=== PATIENT | female | born 1965 | race Caucasian/White ===

== ENCOUNTER → 2016-12-02 | Outpatient (CLI) | payer MEDICARE, MEDICAID ==
--- NOTE | 2016-12-27 00:07 | ECWPNPC ---
PATIENT NAME: UGO STONER : 1965 GENDER: FEMALE VISIT DATE: 12/02/2016 DISCHARGE DATE: 12/02/16 1514 VISIT LOCKED DATE TIME: PHYSICIAN: JONNY TAVERAS RESOURCE: JONNY TAVERAS REASON FOR APPOINTMENT 1. NECK/BACK HISTORY OF PRESENT ILLNESS NEW PATIENT CONSULT: WHEN DID YOUR PAIN FIRST START? . BRIEFLY DESCRIBE HOW YOUR PAIN STARTED? . HOW DOES YOUR PAIN CHANGE WITH TIME? . DOES YOUR PAIN AWAKEN YOU FROM SLEEP? . HOW MANY HOURS OF SLEEP DO YOU NORMALLY GET? . ANY DIAGNOSTIC TESTING? . FACILITY WHERE TESTS WERE DONE? ____. PAIN TREATMENT TREATMENT YES CANCER HAVE YOU EVER HAD ANY TYPE OF CANCER?NO NO. PAIN SCREENING: PATIENT HAS A COMPLAINT OF ACUTE OR CHRONIC PAIN :YES FALL RISK SCREENING: SCREENING :NO FALLS IN THE PAST YEAR POWER INVENTORY: QUESTIONNAIRE ASSESSEDYES SCORE VALUE CALCULATED YES SCORE: 15/63 DENIES SUICIDAL OR HOMICIDAL IDEATION TODAY'S VISIT: NOTES: PT REFERRED BY HALLEY ARIAS CUSTOMER [employer]Y MANAGER-C FOR CHRONIC NECK AND BACK PAIN. HAD PREVIOUS BEEN UNDER THE CARE OF DR MOSCOSO, [facility].HAS HAD PAIN ISSUES SINCE CHILDHOOD BUT THINGS HAVE GOTTEN WORSE. ALSO REPORTS PAIN IN SHOULDERS AND HIP. STATES THAT THE WORST IS MID THORACIC AREA. MOST RECENTLY WAS SEEN BY DR MOSCOSO AT [facility] AND HAD THORACIC EPIDURAL WITHOUT RELIEF, ALSO HAD TRIGGER POINT INJECTIONS WHICH HELPED. ALSO HAD BLOCK TO RIGHT SHOULDER WHICH WAS HELPFUL. FEELS LIKE NECK IS NOT ABLE TO HOLD HEAD UP. HAS USED NECK TRACTION, TENS, BRACE. THESE HELP.RATES PAIN TODAY 7/10 - TODAY IS A BAD DAY. NOTES MORNINGS ARE THE BEST - PAIN USUALLY 4/10. . CURRENT MEDICATIONS TAKING CYMBALTA 60 MG CAPSULE DELAYED RELEASE PARTICLES 1 CAPSULE ORALLY TWICE A DAY TAKING LYRICA 300 MG CAPSULE 1 CAPSULE ORALLY THREE TIMES A DAY TAKING ZOLOFT 100 MG TABLET 1 TABLET ORALLY ONCE A DAY TAKING ZESTORETIC 20-12.5 MG TABLET 1 TABLET ORALLY ONCE A DAY TAKING TRAZODONE HCL 100 MG TABLET 1 TABLET AT BEDTIME ORALLY ONCE A DAY TAKING ALEVE 220 MG TABLET 1 TABLET NEEDED ORALLY EVERY 12 HRS NEEDED FOR PAIN DISCONTINUED CYMBALTA 30 MG CAPSULE DELAYED RELEASE PARTICLES 1 CAPSULE ORALLY TWICE A DAY DISCONTINUED ABILIFY 10 MG TABLET 1 TABLET ORALLY ONCE A DAY DISCONTINUED LYRICA 75 MG CAPSULE 1 CAPSULE ORALLY THREE TIMES A DAY NEEDED DISCONTINUED AMBIEN CR 12.5 MG TABLET EXTENDED RELEASE 1 TABLET AT BEDTIME NEEDED ORALLY NEEDED AT BEDTIME DISCONTINUED AMITRIPTYLINE HCL 25 MG TABLET 1 TABLET AT BEDTIME ORALLY ONCE A DAY DISCONTINUED SAVELLA 50 MG TABLET 1 TAB(S) ORALLY TWICE A DAY DISCONTINUED SOMA 350 MG TABLET 1 TABLET ORALLY THREE TIMES A DAY DISCONTINUED PROZAC 60MG 1 DAILY DISCONTINUED ZESTORETIC 20-12.5 MG TABLET 1 TABLET ORALLY ONCE A DAY MEDICATION LIST REVIEWED AND RECONCILED WITH THE PATIENT PAST MEDICAL HISTORY DDD/DD HYPERTENSION SPINAL STENOSIS SHOULDER PAIN FIBROMYALGIA ANXIETY ALLERGIES N.K.D.A. SURGICAL HISTORY C SECTION TUBAL LIGATION WRIST SURGERY- LEFT COLONOSCOPY CANCER- DEMATEFIBROSARCOMA PROTUBERANS FAMILY HISTORY 1DAUGHTER(S) - HEALTHY. NONCONTRIBUTORY- ADOPTED. SOCIAL HISTORY GENERAL: TOBACCO USE ARE YOU A:CURRENT SMOKER PATIENT COUNSELED ON THE DANGERS OF TOBACCO USE AND URGED TO QUIT:12/02/2016 ARE YOU INTERESTED IN QUITTING?READY TO QUIT COUNSELED THE PATIENT ON TOBACCO USE, CESSATION [id number]/13/2017 ALCOHOL SCREENING POINTS0 INTERPRETATIONNEGATIVE RECREATIONAL DRUG USE DRUG USE?YES HOW OFTEN AND HOW MUCH? DAILY SMOKES POT CAFFEINE CAFFEINE USE?NO RARELY HAS CAFFIENE LEARNING BARRIERS / SPECIAL NEEDS BARRIERS TO LEARNING?NO VISION IMPAIRED?YES :CORRECTIVE LENSES READINESS TO LEARN?YES LEARNING PREFERENCES?NO PAIN CLINIC PFS, CLERGY, PUBLIC HEALTH REFERRALS PFS REFERRAL NEEDED?NO CLERGY REFERRAL NEEDED?NO PUBLIC HEALTH REFERRAL NEEDED?NO WAS THE PROVIDER NOTIFIED OF ANY PERTINENT INFO?NO HAS THE PATIENT BEEN EDUCATED REGARDING HIS/HER PLAN OF CARE?YES HAS THE PATIENT BEEN EDUCATED REGARDING PAIN, THE RISK FOR PAIN, THE IMPORTANCE OF EFFECTIVE PAIN MANAGEMENT, AND THE PAIN ASSESSMENT PROCESS?YES PATIENT: ____. ADVANCE DIRECTIVES HEALTH CARE PROXY?NO WOULD YOU LIKE MORE INFORMATION?NO HOSPITALIZATION/MAJOR DIAGNOSTIC PROCEDURE DENIES HOSPITALIZATION EXCEPT FOR SURGERY REVIEW OF SYSTEMS REVIEWED BY: PROVIDER: JONNY ETIENNE . CONSTITUTIONAL: ANY CHANGE IN YOUR MEDICAL CONDITION? NO . CHILLS NO . FEVER NO . INFECTION: DO YOU HAVE NEW INFECTIONS? NO . DO YOU HAVE HISTORY OF MRSA? NO . MUSCULOSKELETAL: ANY NEW PATTERNS OF PAIN OR NUMBNESS? NO . SYTEMIC LUPUS NO . GASTROENTEROLOGY: GENERAL CHRONIC CONSTIPATION - DIET MANAGED . ANY NEW CHANGE IN BOWEL CONTROL? NO . BARRETTS ESOPHAGUS NO . CIRRHOSIS NO . HEPATITIS NO . LIVER FAILURE NO . ACID REFLUX NO . UNEXPLAINED WEIGHT LOSS NO . GENITOURINARY: ANY NEW CHANGE IN BLADDER CONTROL? NO . IS THERE A CHANCE YOU COULD BE ? NO . HEMATOLOGY/LYMPH: DO YOU TAKE ANY BLOOD THINNERS? (FOR EXAMPLE- COUMADIN, PLAVIX, AGGRENOX, PLATEL, PRADAXA, OR XARELTO) NO . WHEN WAS YOUR LAST DOSE? DATE: TIME: . LOW PLATELET COUNT NO . SICKLE CELL DISEASE NO . VON WILLIEBRANDS NO . FACTOR V LEIDEN NO . THALLASEMIA NO . ANEMIA NO . EASY BRUISING NO . NEUROLOGY: MYAASTHENIA GRAVIS NO . HEADACHE HX OF MIGRAINES WHEN WORKING NIGHTS . CARDIOLOGY: DO YOU HAVE A PACEMAKER OR DEFIBRILLATOR? NO . ANGINA NO . HEART ATTACK NO . HEART SURGERY NO . CONGESTIVE HEART FAILURE/FLUID OVERLOAD NO . CHEST PAIN NO . HIGH BLOOD PRESSURE ON MEDICATION(S) . IRREGULAR HEART BEAT NO . RESPIRATORY: HAVE YOU BEEN SICK IN THE PAST WEEK? NO . FEVER NO . FLU LIKE SYMPTOMS? NO . CPAP NO . BYPAP NO . ASTHMA NO . EMPHYSEMA NO . CHRONIC LUNG DISEASES NO . SHORTNESS OF BREATH ON EXERTION NO . DO YOU USE ANY TYPE OF TOBACCO (SMOKE, SMOKELESS, CHEW)? YES, SMOKES . COUGH NO . SNORING NO . INTEGUMENTARY: DO YOU HAVE ANY RASHES OR OPEN SORES? NO . ALLERGIC/IMMUNO: ARE YOU ALLERGIC TO SHELLFISH OR IV DYE? NO . ANY NEW ALLERGIES? NO . PSYCHIATRIC: DO YOU HAVE THOUGHTS OF HURTING YOURSELF OR SOMEONE ELSE? NO . ARE YOU ABUSED, NEGLECTED, OR IN AN UNSAFE ENVIRONMENT? NO . ENDOCRINOLOGY: ARE YOU DIABETIC? NO . THYROID DISORDER NO . OTHER: DO YOU NEED ANY PRESCRIPTIONS? NO . IF YES, PLEASE LIST: ____ . ANY NEW PROBLEMS WITH YOUR MEDICATIONS? NO . WHEN DID YOU LAST EAT? ____ . WHEN DID YOU LAST DRINK? ____ . WHAT DID YOU LAST DRINK? ____ . NAME OF PERSON DRIVING YOU HOME? ____ . DO YOU HAVE ANY OTHER QUESTIONS OR CONCERNS NO . VITAL SIGNS WT 171.6 LBS, HT 62 IN, BMI 31.38 INDEX, BP 136/75 MM HG, HR 77 /MIN, RR 16 /MIN, TEMP 98.7 F, OXYGEN SAT % 99%, REVIEWED BY: COBY 1354. EXAMINATION GENERAL EXAMINATION: GENERAL APPEARANCE:PLEASANT TO INTERACT WITH. WELL GROOMED. PSYCHALERT , ORIENTED X 3 , APPROPRIATE MOOD AND AFFECT , GOOD EYE CONTACT. HEENT:NORMOCEPHALIC, NO LYMPHADENOPATHY, NO THYROMEGLY. LUNGS:CLEAR TO AUSCULTATION BILATERALLY, NO WHEEZES RALES OR RHONCHI. HEART:NORMAL S1S2, NO MURMURS, CLICK OR RUBS. MUSCULOSKELETAL:MUSCLE STRENGTH TESTING 5/5 BILATERAL UPPER AND LOWER EXTREMITIES. POINT TENDERNESS OVER C7 PROMINENCE AND OVER UPPER THORACIC SPINOUS PROCESSES. TENDERNESS OVER RIGHT SCAPULA WITH TRIGGER POINTS AND TIGHT FIBROUS BANDS OVER THIS REGION. TENDERNESS OVER LUMBAR FACETS AND SACRUM. CAN FLEX TO 45 DEGREES, EXTEND TO 15 DEGREES,. NO PAIN WITH SLR. LEG LENGTH EQUAL. NO PAIN WITH PELVIC COMPRESSION OR PATRICKS TESTING. POSTURE UPRIGHT. GAIT NONANTALGIC. NEUROLOGIC EXAM:DTR'S 2+ BILATERAL UPPER AND LOWER EXTREMITIES. NO SENSORY DEFICIET. HYSENSATIVITY OVER CERVICAL THORACIC JUNCTION . 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 WAS OFFERED SMOKING CESSATION FOR GUIDANCE IN QUITTING THROUGH THE [facility] QUITS PROGRAM AND [facility]. CLINICAL NOTES: ISTOP REGISTRY REVIEWED AND DEMNOSTRATES COMPLLIANCE. OPTIONS FOR CONTINUED PAIN MANAGEMENT DISCUSSED. WILL OBTAIN NEW IMAGING STUDIES OF CERVICAL AND THORACIC SPINE. PROCEDURE CODES FA211 ESTABILISHED PATIENT [facility] FACILITY CHARGE G7300 BP SCR PRFRM RCMDD DEFIND SCR INTVL G6418 PAIN ASSESS POS TOOL F/U PLAN DOC 3016F PT SCRND UNHLTHY [place] USE 1124F ACP DISCUSS-NO DSCNMKR DOCD G8427 DOC MEDS VERIFIED W/PT OR RE G8420 BMI<30 AND >=22 CALC & DOCU 3288F FALL RISK ASSESSMENT DOCD 4004F PT TOBACCO SCREEN RCVD TLK DISPOSITION & COMMUNICATION FOLLOW UP 1 MONTH (REASON: MIYA DR BLANKA JoseP PAIN - NEED TREATMENT RECORDS - INJECTIONS. PRIOR AUTH OF MRI CERVICAL/THORACIC SP) ELECTRONICALLY SIGNED BY LUIS STRATTON ON 12/26/2016 AT 10:57 AM EDT DISCLAIMER : THIS IS A VISIT SUMMARY EXTRACTED FROM THE [employer] CHART. IT IS NOT A COPY OF THE [employer] PROGRESS NOTE. MTDD
== END ==
LOC: M PAIN 13:20
PROVIDERS: ATTEND Nurse Practitioner Family
DX: G89.29 Other chronic pain (principal); M51.24 Other intervertebral disc displacement, thoracic region; M79.7 Fibromyalgia; I10 Essential (primary) hypertension; F41.9 Anxiety disorder, unspecified; F17.210 Nicotine dependence, cigarettes, uncomplicated; F12.90 Cannabis use, unspecified, uncomplicated; Z79.899 Other long term (current) drug therapy

== ENCOUNTER → 2016-12-07 | Outpatient (CLI) | payer MEDICARE, MEDICAID ==
--- NOTE | 2016-12-08 08:13 | REP ---
MRI CERVICAL SPINE WITHOUT CONTRAST: HISTORY: Disc displacement. COMPARISON: 06/04/2008. A disc bulge is present at the C3-4 level. There is minimal effacement of the thecal sac without spinal cord compression. The C3 neural foramina are patent. A disc bulge is present at the C4-5 level. There is minimal effacement of the thecal sac without spinal cord compression. The C4 neural foramina are patent. A disc bulge with associated osteophyte formation is present at the C5-6 level. There is moderate effacement of the thecal sac without spinal cord compression. Bilateral uncinate process hypertrophy is present. This produces mild and minimal narrowing of the right and left C5 neural foramina respectively. A disc bulge is present at the C6-7 level. There is mild effacement of the thecal sac without spinal cord compression. Uncinate process hypertrophy is present on the left. This produces mild narrowing of the left C6 neural foramen. The right C6 neural foramen is patent. There is no other disc bulge or herniation. The remaining neural foramina are patent. The spinal cord is normal in signal intensity. The C5-6 and C6-7 intervertebral discs are decreased in height consistent with disc degeneration. Normal signal intensity is present in the cervical vertebral bodies. IMPRESSION: There is cervical spondylosis at the C3-4 through C6-7 levels without spinal cord compression. The foraminal narrowing at the C5-6 and C6-7 levels is a new finding. Signed by Fabrizio Oneil MD 12/08/2016 08:16 A
--- NOTE | 2016-12-08 08:40 | REP ---
MR THORACIC SPINE WITHOUT CONTRAST: HISTORY: Disc displacement. A small central disc protrusion is present at the T1-2 level. There is minimal effacement of the thecal sac without spinal cord compression. The T1 neural foramen are patent. A small central disc protrusion is present at the T2-3 level. There is minimal effacement of the thecal sac without spinal cord compression. The T2 neural foramina are patent. A small central disc protrusion is present at the T3-4 level. There is minimal effacement of the thecal sac without spinal cord compression. The T3 neural foramina are patent. A small central disc protrusion is present at the T4-5 level. There is minimal effacement of the thecal sac without spinal cord compression. The T4 neural foramina are patent. A small left paracentral disc protrusion is present at the T6-7 level. There is minimal effacement of the thecal sac without spinal cord compression. The T6 neural foramina are patent. There is no other disc bulge or herniation. The remaining neural foramina are patent. The spinal cord is normal in signal intensity. There are old compression fractures of the T7 and 8 vertebral bodies with minimal height loss. Increased signal intensity on T2 weighted images is present in the endplates of the T6-9 vertebral bodies. This represents degenerative change. Anterior osteophytes are present in the mid and lower thoracic spine. IMPRESSION: 1. Small disc protrusions at the T1-2 through T4-5 and T6-7 levels without spinal cord compression. 2. Old T7 and 8 compression fractures with minimal height loss. Signed by Fabrizio Oenil MD 12/08/2016 08:49 A
== END ==
LOC: M RAD 17:05
PROVIDERS: ATTEND Nurse Practitioner Family
DX: M51.24 Other intervertebral disc displacement, thoracic region (principal); M43.02 Spondylolysis, cervical region

== ENCOUNTER → 2016-12-21 | Outpatient (CLI) | payer MEDICARE, MEDICAID ==
--- NOTE | 2016-12-21 14:02 | REP ---
AP AND LATERAL LEFT ANKLE, TWO VIEWS: HISTORY: Edema. There is no acute fracture or dislocation. The joint space is normal in appearance. An osteophyte is present on the inferior calcaneus. IMPRESSION: Degenerative change as described above. Signed by Fabrizio Oneil MD 12/21/2016 02:04 P
--- NOTE | 2016-12-21 16:34 | REPMRS ---
Patient History The patient states she has not had a clinical breast exam in over a year. Patient has history of other cancer. No known family history of cancer. Digital Mammo Screening Bilat: December 21, 2016 - Exam #: [id number] Bilateral CC and MLO view(s) were taken. Technologist: Lesli Kahn, Technologist Prior study comparison: 2014, digital bilateral screening mammo, performed at [facility]. FINDINGS: There are scattered fibroglandular densities. There has been no change in the appearance of the mammogram from the prior studies. There is a mild amount of residual fibroglandular tissue which is fairly symmetric. There is no interval development of dominant mass, architectural distortion, or clustered microcalcification suggestive of malignancy. No significant changes when compared with prior studies. ASSESSMENT: BI-RADS/ACR category 1 mammogram. Negative. Recommendation Routine screening mammogram in 1 year (for women over age 40). This mammogram was interpreted with the aid of an FDA-approved computer-aided dectection system. A. Negative x-ray reports should not delay biopsy if a dominant or clinically suspicious mass is present. B. Four to eight percent of cancers are not identified by mammography. C. Adenosis and dense breast may obscure an underlying neoplasm. Electronically Signed By: Abel Slaughter MD 12/21/16 [id number]
== END ==
LOC: M RAD 12:55
PROVIDERS: ATTEND Internal Medicine Hematology & Oncology
DX: Z12.31 Encounter for screening mammogram for malignant neoplasm of breast (principal)
CPT/HCPCS: 73600; G0202

== ENCOUNTER → 2016-12-30 | Outpatient (CLI) | payer MEDICARE, MEDICAID ==
--- NOTE | 2017-01-15 23:31 | ECWPNPC ---
PATIENT NAME: UGO STONER : 1965 GENDER: FEMALE VISIT DATE: 12/30/2016 DISCHARGE DATE: 12/30/16 1153 VISIT LOCKED DATE TIME: PHYSICIAN: JONNY TAVERAS RESOURCE: JONNY TAVERAS REASON FOR APPOINTMENT 1. NECK/BACK/SHOULDER HISTORY OF PRESENT ILLNESS HISTORY OF PRESENT ILLNESS: PAIN THE PATIENT DESCRIBES THE PAIN... FALL RISK SCREENING: SCREENING :NO FALLS IN THE PAST YEAR TODAY'S VISIT: NOTES: RETURNS TODAY FOR POST MRI FOLLOWUP. RATES PAIN TODAY 11/29. HAD FALL WITH INCREASED PAIN TO LOW NACK AN RIGHT HIP AFTER FALL. DID SEE PCP FOR SWOLEN ANKLE - XRAY WAS DONE. WORST AREA OF PAIN IS NECK BOTH SIDES. IS HAVING N/T IN HANDS AND LEGS INTERMITTANTLY. . CURRENT MEDICATIONS TAKING CYMBALTA 60 MG CAPSULE DELAYED RELEASE PARTICLES 1 CAPSULE ORALLY TWICE A DAY TAKING LYRICA 300 MG CAPSULE 1 CAPSULE ORALLY THREE TIMES A DAY TAKING ZOLOFT 100 MG TABLET 1 TABLET ORALLY ONCE A DAY TAKING ZESTORETIC 20-12.5 MG TABLET 1 TABLET ORALLY ONCE A DAY TAKING TRAZODONE HCL 100 MG TABLET 1 TABLET AT BEDTIME ORALLY ONCE A DAY TAKING ALEVE 220 MG TABLET 1 TABLET NEEDED ORALLY EVERY 12 HRS NEEDED FOR PAIN MEDICATION LIST REVIEWED AND RECONCILED WITH THE PATIENT PAST MEDICAL HISTORY DDD/DD HYPERTENSION SPINAL STENOSIS SHOULDER PAIN FIBROMYALGIA ANXIETY ALLERGIES N.K.D.A. SOCIAL HISTORY GENERAL: TOBACCO USE ARE YOU A:CURRENT SMOKER PATIENT COUNSELED ON THE DANGERS OF TOBACCO USE AND URGED TO QUIT:12/02/2016 ARE YOU INTERESTED IN QUITTING?READY TO QUIT COUNSELED THE PATIENT ON TOBACCO USE, CESSATION [id number]/13/2017 ALCOHOL SCREENING DID YOU HAVE A DRINK CONTAINING ALCOHOL IN THE PAST YEAR?NO POINTS0 INTERPRETATIONNEGATIVE RECREATIONAL DRUG USE DRUG USE?YES HOW OFTEN AND HOW MUCH? DAILY SMOKES POT CAFFEINE CAFFEINE USE?NO RARELY HAS CAFFIENE LEARNING BARRIERS / SPECIAL NEEDS CHANGE FROM LAST VISIT?NO BARRIERS TO LEARNING?NO HEARING IMPAIRED?NO VISION IMPAIRED?YES :CORRECTIVE LENSES COGNITIVELY IMPAIRED?NO READINESS TO LEARN?YES LEARNING PREFERENCES?NO LEARNING CAPABILITIES PRESENT?YES EMOTIONAL BARRIERS?NO SPECIAL DEVICES?NO ACCOUNTS PAYABLE OR RECEIVABLE CLERK NEEDED?NO PAIN CLINIC PFS, CLERGY, PUBLIC HEALTH REFERRALS PFS REFERRAL NEEDED?NO CLERGY REFERRAL NEEDED?NO PUBLIC HEALTH REFERRAL NEEDED?NO WAS THE PROVIDER NOTIFIED OF ANY PERTINENT INFO?NO HAS THE PATIENT BEEN EDUCATED REGARDING HIS/HER PLAN OF CARE?YES HAS THE PATIENT BEEN EDUCATED REGARDING PAIN, THE RISK FOR PAIN, THE IMPORTANCE OF EFFECTIVE PAIN MANAGEMENT, AND THE PAIN ASSESSMENT PROCESS?YES PATIENT: ____. ADVANCE DIRECTIVES HEALTH CARE PROXY?NO WOULD YOU LIKE MORE INFORMATION?NO REVIEW OF SYSTEMS REVIEWED BY: PROVIDER: JONNY ETIENNE . CONSTITUTIONAL: ANY CHANGE IN YOUR MEDICAL CONDITION? NO . CHILLS NO . FEVER NO . INFECTION: DO YOU HAVE NEW INFECTIONS? NO . DO YOU HAVE HISTORY OF MRSA? NO . MUSCULOSKELETAL: ANY NEW PATTERNS OF PAIN OR NUMBNESS? YES, FELL ABOUT 3 WEEKS AGO AND SINCE FALLING NOW HAS RIGHT HIP PAIN AND INCREASED RIGHT LOWER BACK PAIN. ALSO, LEFT ANKLE SWELLING PRIOR TO FALL AND SAW PRIMARY MD AND XRAYS DONE OF LEFT ANKLE. . GASTROENTEROLOGY: ANY NEW CHANGE IN BOWEL CONTROL? NO . GENITOURINARY: ANY NEW CHANGE IN BLADDER CONTROL? NO . IS THERE A CHANCE YOU COULD BE ? NO . HEMATOLOGY/LYMPH: DO YOU TAKE ANY BLOOD THINNERS? (FOR EXAMPLE- COUMADIN, PLAVIX, AGGRENOX, PLATEL, PRADAXA, OR XARELTO) NO . WHEN WAS YOUR LAST DOSE? DATE: TIME: . NEUROLOGY: HAVE YOU FALLEN IN THE PAST 6 MONTHS? YES . ANY NEW EXTREMITY NUMBNESS OR WEAKNESS? NO . CARDIOLOGY: DO YOU HAVE A PACEMAKER OR DEFIBRILLATOR? NO . RESPIRATORY: HAVE YOU BEEN SICK IN THE PAST WEEK? NO . FEVER NO . FLU LIKE SYMPTOMS? NO . COUGH NO . INTEGUMENTARY: DO YOU HAVE ANY RASHES OR OPEN SORES? NO . ALLERGIC/IMMUNO: ARE YOU ALLERGIC TO SHELLFISH OR IV DYE? NO . ANY NEW ALLERGIES? NO . PSYCHIATRIC: DO YOU HAVE THOUGHTS OF HURTING YOURSELF OR SOMEONE ELSE? NO . ARE YOU ABUSED, NEGLECTED, OR IN AN UNSAFE ENVIRONMENT? NO . ENDOCRINOLOGY: ARE YOU DIABETIC? NO . OTHER: DO YOU NEED ANY PRESCRIPTIONS? NO . IF YES, PLEASE LIST: ____ . ANY NEW PROBLEMS WITH YOUR MEDICATIONS? NO . WHEN DID YOU LAST EAT? ____ . WHEN DID YOU LAST DRINK? ____ . WHAT DID YOU LAST DRINK? ____ . NAME OF PERSON DRIVING YOU HOME? ____ . DO YOU HAVE ANY OTHER QUESTIONS OR CONCERNS YES, RIGHT HIP PAIN . VITAL SIGNS WT 169.8 LBS, HT 62 IN, BMI 31.05 INDEX, BP 148/81 MM HG, HR 81 /MIN, RR 16 /MIN, TEMP 98.7 F, OXYGEN SAT % 96%, NA INITIALS QW 1052, REVIEWED BY: BEE. EXAMINATION GENERAL EXAMINATION: GENERAL APPEARANCE:PLEASANT TO INTERACT WITH. WELL GROOMED. PSYCHALERT , ORIENTED X 3 , APPROPRIATE MOOD AND AFFECT . LUNGS:CLEAR TO AUSCULTATION BILATERALLY, NO WHEEZES RALES OR RHONCHI. HEART:NORMAL S1S2, NO MURMURS, CLICK OR RUBS. MUSCULOSKELETAL:MUSCLE STRENGTH TESTING 5/5 BILATERAL UPPER AND LOWER EXTREMITIES. POINT TENDERNESS OVER C7 PROMINENCE AND OVER UPPER THORACIC SPINOUS PROCESSES. TENDERNESS OVER RIGHT SCAPULA WITH TRIGGER POINTS AND TIGHT FIBROUS BANDS OVER THIS REGION.. POSTURE UPRIGHT. GAIT NONANTALGIC. NEUROLOGIC EXAM:HYPERSENSATIVITY OVER CERVICAL THORACIC JUNCTION . DIAGNOSTIC TESTS REVIEWEDMRI OF CERVICAL SPINE AND THORACIC SPINE CMPLETED ON 12/07/16 REVIEWED AND DISCUSSED WITH PATIENT. 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 CALL DR ELROY DIAZ ABOUT MEDICAL MARIJUANA PROGRAMDO EXERCISES AND STRETCHES OF UPPER SHOULDERS AND TRAPEZIUS MUSCLES. WALK EVERY DAY. PROCEDURE CODES FA211 ESTABILISHED PATIENT [facility] FACILITY CHARGE G8730 PAIN ASSESS POS TOOL F/U PLAN DOC G8427 DOC MEDS VERIFIED W/PT OR RE DISPOSITION & COMMUNICATION FOLLOW UP 3 MONTHS (REASON: NECK/THORACIC PAIN) ELECTRONICALLY SIGNED BY LUIS STRATTON ON 01/15/2017 AT 04:49 PM EDT DISCLAIMER : THIS IS A VISIT SUMMARY EXTRACTED FROM THE [employer] CHART. IT IS NOT A COPY OF THE [employer] PROGRESS NOTE. GIANNA
== END ==
LOC: M PAIN 10:40
PROVIDERS: ATTEND Nurse Practitioner Family
DX: G89.29 Other chronic pain (principal); M51.24 Other intervertebral disc displacement, thoracic region; M79.7 Fibromyalgia; I10 Essential (primary) hypertension; F41.9 Anxiety disorder, unspecified; M48.00 Spinal stenosis, site unspecified; Z79.1 Long term (current) use of non-steroidal anti-inflammatories (NSAID); Z79.899 Other long term (current) drug therapy; F17.210 Nicotine dependence, cigarettes, uncomplicated

== ENCOUNTER → 2017-09-05 | Outpatient (CLI) | payer MEDICARE, MEDICAID | LOC: M LRY 18:10 | DX: S69.91XA Unspecified injury of right wrist, hand and finger(s), initial encounter (principal); S89.91XA Unspecified injury of right lower leg, initial encounter; W00.0XXA Fall on same level due to ice and snow, initial encounter; Y92.9 Unspecified place or not applicable; Y93.9 Activity, unspecified | CPT/HCPCS: 73130; G0463 ==

== ENCOUNTER → 2018-05-31 | Outpatient (CLI) | payer MEDICARE, MEDICAID ==
--- NOTE | 2018-05-31 10:09 | REP ---
AP PELVIS, LEFT HIP, THREE VIEWS: HISTORY: Left hip pain. COMPARISON: 12/12/2009. There is no acute fracture or dislocation. The left hip joint space is normal in appearance. There is minimal narrowing of the right hip joint space with associated sclerosis and osteophyte formation. A bone fragment is present along the lateral aspect of the inferior ischium representing an old avulsion fracture fragment. IMPRESSION: Degenerative change as described above. Electronically Signed by Fabrizio Oneil MD 05/31/2018 10:12 A
[2018-05-31 11:27] LABS: HEMATOCRIT 38.4 % (36.0-47.0); MEAN CORPUSCULAR HEMOGLOBIN 31.1 pg (27.0-33.0); MEAN CORPUSCULAR HGB CONC 33.9 g/dl (32.0-36.5); MEAN CORPUSCULAR VOLUME 91.9 fl (80.0-96.0); PLATELET COUNT, AUTOMATED 349 10^3/uL (150-450); RED BLOOD COUNT 4.18 10^6/uL (4.00-5.40); WHITE BLOOD COUNT 6.4 10^3/uL (4.0-10.0)
[2018-05-31 12:16] LABS: ALBUMIN 3.4 GM/DL (3.2-5.2); ALT/SGPT 11 U/L (12-78); BILIRUBIN,TOTAL 0.4 MG/DL (0.2-1.0); BLOOD UREA NITROGEN 3 MG/DL (7-18); CALCIUM LEVEL 8.3 MG/DL (8.5-10.1); CARBON DIOXIDE LEVEL 32 MEQ/L (21-32); CHLORIDE LEVEL 100 MEQ/L (98-107); CHOLESTEROL LEVEL 188 MG/DL (<200); CHOLESTEROL RISK RATIO 2.441 (<5); GLOMERULAR FILTRATION RATE > 60.0 (>51); GLUCOSE, FASTING 88 MG/DL (70-100); HDL CHOLESTEROL 77 MG/DL (>40); LDL CHOLESTEROL 95 MG/DL (<100); NON-HDL-C 111 MG/DL; POTASSIUM SERUM 3.3 MEQ/L (3.5-5.1); SODIUM LEVEL 139 MEQ/L (136-145); THYROID STIMULATING HORMONE 0.614 uIU/ML (0.358-3.740); TOTAL PROTEIN 6.4 GM/DL (6.4-8.2); TRIGLYCERIDES LEVEL 81 MG/DL (<150)
== END ==
LOC: M LRY 08:53
PROVIDERS: ATTEND Internal Medicine Hematology & Oncology
DX: Z13.220 Encounter for screening for lipoid disorders (principal); F32.9 Major depressive disorder, single episode, unspecified; M25.552 Pain in left hip; M25.752 Osteophyte, left hip; M24.152 Other articular cartilage disorders, left hip

== ENCOUNTER → 2018-07-03 | Outpatient (CLI) | payer MEDICARE, MEDICAID ==
[2018-07-03 13:17] LABS: BLOOD UREA NITROGEN 7 MG/DL (7-18); CALCIUM LEVEL 9.1 MG/DL (8.5-10.1); CARBON DIOXIDE LEVEL 30 MEQ/L (21-32); CHLORIDE LEVEL 103 MEQ/L (98-107); GLOMERULAR FILTRATION RATE > 60.0 (>51); GLUCOSE, FASTING 85 MG/DL (70-100); SODIUM LEVEL 138 MEQ/L (136-145)
[2018-07-03 13:27] LABS: TOTAL 25(OH) VITAMIN D 26.4 NG/ML (30.0-100.0)
== END ==
LOC: M LAB 12:06
PROVIDERS: ATTEND Internal Medicine Hematology & Oncology
DX: E87.6 Hypokalemia (principal); E83.51 Hypocalcemia

== ENCOUNTER → 2018-07-05 | Outpatient (CLI) | payer MEDICARE, MEDICAID ==
--- NOTE | 2018-07-05 09:07 | REP ---
MRI LUMBAR SPINE WITHOUT CONTRAST: HISTORY: Back pain. Decreased signal intensity on T2-weighted images is present in the lumbar intervertebral discs. The L2-3 through L5-S1 intervertebral discs are decreased in height. These findings are consistent with disc degeneration. A diffuse disc bulge is present at the L1-2 level. There is minimal compression of the thecal sac. There is hypertrophy of the ligamenta flava and posterior articulating facets. The L1 nerves exit the neural foramina without compression. A diffuse disc bulge is present at the L2-3 level. There is minimal compression of the thecal sac. There is hypertrophy of the ligamenta flava and posterior articulating facets. The L2 nerves exit the neural foramina without compression. A diffuse disc bulge is present at the L3-4 level. There is hypertrophy of the ligamenta flava and posterior articulating facets. These findings produce mild central canal stenosis. There is compression of the right L3 nerve in the neural foramen. The left L3 nerve exits the neural foramen without compression. A diffuse disc bulge and small right paracentral disc extrusion are present at the L4-5 level. There is superior migration of disc material. There is hypertrophy of the ligamenta flava and posterior articulating facets. These findings produce moderate central canal stenosis. The L4 nerves exit the neural foramina without compression. A diffuse disc bulge and small disc protrusion central and eccentric to the left are present at the L5-S1 level. There is hypertrophy of the ligamenta flava and posterior articulating facets. These findings produce mild central canal stenosis. There is compression of the L5 nerves in the neural foramina. The conus medullaris is normal in appearance terminating at the level of the L1-2 intervertebral disc. Increased signal intensity on T2-weighted images is present in the endplates of the L4-S1 vertebral bodies. This represents degenerative change. IMPRESSION: 1. Diffuse disc bulges at the L1-2 and L2-3 levels with minimal thecal sac compression. 2. Mild central canal stenosis at the L3-4 level secondary to disc bulge, ligamentous and facet hypertrophy. There is compression of the right L3 nerve in the neural foramen. 3. Moderate central canal stenosis at the L4-5 level secondary to disc bulge, disc extrusion, ligamentous and facet hypertrophy. 4. Mild central canal stenosis at the L5-S1 level secondary to disc bulge, disc protrusion, ligamentous and facet hypertrophy. There is compression of the L5 nerves in the neural foramina. Electronically Signed by Fabrizio Oneil MD 07/05/2018 09:11 A
== END ==
LOC: M RAD 07:21
PROVIDERS: ATTEND Orthopaedic Surgery Sports Medicine
DX: M51.26 Other intervertebral disc displacement, lumbar region (principal); M48.061 Spinal stenosis, lumbar region without neurogenic claudication

== ENCOUNTER 2018-11-05 08:17 | Emergency (ER) | payer MEDICARE, MEDICAID ==
[~2018-11-05] VITALS: Ht 157.5 cm; Wt 77.3 kg
[2018-11-05] MEDS ORDERED: METAL LOCK LOOP XX ONE (09:06)
[2018-11-05] MEDS ORDERED: BACT800T5 PO (09:56)
[2018-11-05] MEDS ORDERED: AUGM875T28 PO (09:56)
[2018-11-05] MEDS ORDERED: DIFL150T PO (09:56)
[2018-11-05] MEDS ORDERED: BACTRIM 160MG/800MG DS TAB PO ONE (10:00)
[2018-11-05] MEDS ORDERED: AUGMENTIN 875 MG TAB PO ONE (10:00)
[2018-11-05 10:07] VITALS: BP 183/102
== END 2018-11-05 10:09 | disposition home or self-care (01) ==
LOC: M ED 08:17
DX: L08.9 Local infection of the skin and subcutaneous tissue, unspecified (principal); S51.812A Laceration without foreign body of left forearm, initial encounter; W54.0XXA Bitten by dog, initial encounter; Y92.9 Unspecified place or not applicable; Y93.9 Activity, unspecified; Y99.9 Unspecified external cause status; F17.210 Nicotine dependence, cigarettes, uncomplicated

== ENCOUNTER → 2018-11-30 | Outpatient (CLI) | payer MEDICARE, MEDICAID ==
[~2018-11-30] MED LIST: AUGM875T28 PO; BACT800T5 PO; DIFL150T PO
--- NOTE | 2018-12-08 01:21 | ECWPNPC ---
PATIENT NAME: UGO STONER : 1965 GENDER: FEMALE VISIT DATE: 11/30/2018 DISCHARGE DATE: 11/30/18 1700 VISIT LOCKED DATE TIME: PHYSICIAN: CECILIA GARCIA MD RESOURCE: CECILIA GARCIA MD REASON FOR APPOINTMENT 1. BACK HISTORY OF PRESENT ILLNESS PAIN SCREENING: PATIENT HAS A COMPLAINT OF ACUTE OR CHRONIC PAIN :YES 52 YEAR OLD FEMALE PATIENT WITH A HISTORY OF CHRONIC LOW BACK PAIN. THE PATIENT DESCRIBES THE PAIN ACHING, BURNING, TENDER, SHARP, STABBING, SHOOTING, AND CONTINUOUS WITH A PAIN SCORE OF 5-8/10 DEPENDING ON PHYSICAL ACTIVITY. THE PATIENT SAYS THAT HER PAIN IS ALSO IN HER CERVICAL AND THORACIC AREA, BUT HER WORST PAIN IS IN HER LOW BACK RADIATING DOWN HER LEFT LEG. THE PATIENT SAYS THAT SHE HAS HAD THIS PAIN FOR MANY YEARS AND IT HAS WORSENED RECENTLY. THE PATIENT SAYS SHE HAS DIFFICULTY DOING DAILY ACTIVITIES SUCH COOKING, CLEANING, AND GROCERY SHOPPING DUE TO THIS PAIN. PATIENT DENIES UNEXPLAINABLE WEIGHT LOSS, FEVER, CHILLS, NEW CHANGES ON HER URINARY OR BOWEL CONTROL. FALL RISK SCREENING: SCREENING :NO FALLS REPORTED IN THE LAST YEAR CURRENT MEDICATIONS TAKING CYMBALTA 60 MG CAPSULE DELAYED RELEASE PARTICLES 1 CAPSULE ORALLY TWICE A DAY TAKING LYRICA 300 MG CAPSULE 1 CAPSULE ORALLY THREE TIMES A DAY TAKING ZOLOFT 100 MG TABLET 200MG TABLET ORALLY ONCE A DAY TAKING ZESTORETIC 20-12.5 MG TABLET 1 TABLET ORALLY ONCE A DAY TAKING TRAZODONE HCL 100 MG TABLET 1 TABLET AT BEDTIME ORALLY ONCE A DAY TAKING VITAMIN D 2000 UNIT TABLET 300UNIT TABLET ORALLY ONCE A DAY TAKING NAPROXEN 250 MG TABLET 1 TABLET WITH FOOD OR MILK ORALLY TWICE A DAY TAKING POTASSIUM 99 MG TABLET 1 TABLET ORALLY ONCE A DAY DISCONTINUED ALEVE 220 MG TABLET 1 TABLET NEEDED ORALLY EVERY 12 HRS NEEDED FOR PAIN MEDICATION LIST REVIEWED AND RECONCILED WITH THE PATIENT PAST MEDICAL HISTORY DDD/DD HYPERTENSION SPINAL STENOSIS SHOULDER PAIN FIBROMYALGIA ANXIETY ALLERGIES N.K.D.A. SURGICAL HISTORY C SECTION TUBAL LIGATION WRIST SURGERY- LEFT COLONOSCOPY CANCER- DEMATEFIBROSARCOMA PROTUBERANS RIGHT EYE SURGERY MASS REMOVED FAMILY HISTORY FATHER: MOTHER: 2 BROTHER(S) , 2 SISTER(S) . 1DAUGHTER(S) - HEALTHY. NONCONTRIBUTORY- ADOPTED. SOCIAL HISTORY GENERAL: TOBACCO USE ARE YOU A:CURRENT SMOKER ARE YOU INTERESTED IN QUITTING?READY TO QUIT COUNSELED THE PATIENT ON TOBACCO USE, CESSATION [id number]/11/2019 PATIENT COUNSELED ON THE DANGERS OF TOBACCO USE AND URGED TO QUIT:12/02/2016 PAIN CLINIC PFS, CLERGY, PUBLIC HEALTH REFERRALS PFS REFERRAL NEEDED?NO CLERGY REFERRAL NEEDED?NO PUBLIC HEALTH REFERRAL NEEDED?NO WAS THE PROVIDER NOTIFIED OF ANY PERTINENT INFO?NO HAS THE PATIENT BEEN EDUCATED REGARDING HIS/HER PLAN OF CARE?YES HAS THE PATIENT BEEN EDUCATED REGARDING PAIN, THE RISK FOR PAIN, THE IMPORTANCE OF EFFECTIVE PAIN MANAGEMENT, AND THE PAIN ASSESSMENT PROCESS?YES CAFFEINE CAFFEINE USE?NO RARELY HAS CAFFIENE ADVANCE DIRECTIVE ADVANCE DIRECTIVE DISCUSSED WITH PATIENT:YES DECLINED JAIN [id number] [employer] LANGUAGES SPOKEN:YAKUT ALCOHOL SCREENING DID YOU HAVE A DRINK CONTAINING ALCOHOL IN THE PAST YEAR?NO POINTS0 INTERPRETATIONNEGATIVE RECREATIONAL DRUG USE DRUG USE?YES HOW OFTEN AND HOW MUCH? DAILY SMOKES POT LEARNING BARRIERS / SPECIAL NEEDS CHANGE FROM LAST VISIT?NO BARRIERS TO LEARNING?NO HEARING IMPAIRED?NO VISION IMPAIRED?YES :CORRECTIVE LENSES COGNITIVELY IMPAIRED?NO READINESS TO LEARN?YES LEARNING PREFERENCES?NO LEARNING CAPABILITIES PRESENT?YES EMOTIONAL BARRIERS?NO SPECIAL DEVICES?NO ACCOUNTS PAYABLE PAYROLL COORDINATOR NEEDED?NO HOSPITALIZATION/MAJOR DIAGNOSTIC PROCEDURE DENIES HOSPITALIZATION EXCEPT FOR SURGERY REVIEW OF SYSTEMS REVIEWED BY: PROVIDER: CECILIA GARCIA MD . CONSTITUTIONAL: ANY CHANGE IN YOUR MEDICAL CONDITION? NO . CHILLS NO . FEVER NO . INFECTION: DO YOU HAVE NEW INFECTIONS? NO . DO YOU HAVE HISTORY OF MRSA? NO . MUSCULOSKELETAL: ANY NEW PATTERNS OF PAIN OR NUMBNESS? NO . SYTEMIC LUPUS NO . GASTROENTEROLOGY: ANY NEW CHANGE IN BOWEL CONTROL? NO . BARRETTS ESOPHAGUS NO . CIRRHOSIS NO . HEPATITIS NO . LIVER FAILURE NO . ACID REFLUX NO . UNEXPLAINED WEIGHT LOSS NO . GENITOURINARY: ANY NEW CHANGE IN BLADDER CONTROL? NO . IS THERE A CHANCE YOU COULD BE ? NO . HEMATOLOGY/LYMPH: DO YOU TAKE ANY BLOOD THINNERS? (FOR EXAMPLE- COUMADIN, PLAVIX, AGGRENOX, PLATEL, PRADAXA, OR XARELTO) NO . WHEN WAS YOUR LAST DOSE? DATE: TIME: . LOW PLATELET COUNT NO . SICKLE CELL DISEASE NO . VON WILLIEBRANDS NO . FACTOR V LEIDEN NO . THALLASEMIA NO . ANEMIA NO . EASY BRUISING NO . NEUROLOGY: HAVE YOU FALLEN IN THE PAST 12 MONTHS? YES, FELL 2-3 WEEKS AGO FROM LOSS OF BALANCE . ANY NEW EXTREMITY NUMBNESS OR WEAKNESS? YES, LEFT LEG NUMBNESS AND BURNING . HEAD INJURY NO . DEMENTIA NO . CEREBRAL PALSY NO . MULTIPLE SCLEROSIS NO . DIZZINESS NO . HEADACHE NO . STROKES NO . VERTIGO NO . CARDIOLOGY: DO YOU HAVE A PACEMAKER OR DEFIBRILLATOR? NO . ANGINA NO . HEART ATTACK NO . HEART SURGERY NO . CONGESTIVE HEART FAILURE/FLUID OVERLOAD NO . CHEST PAIN NO . HIGH BLOOD PRESSURE ON MEDICATION(S) . IRREGULAR HEART BEAT NO . RESPIRATORY: HAVE YOU BEEN SICK IN THE PAST WEEK? NO . FEVER NO . FLU LIKE SYMPTOMS? NO . CPAP NO . BYPAP NO . ASTHMA NO . EMPHYSEMA NO . CHRONIC LUNG DISEASES NO . SHORTNESS OF BREATH ON EXERTION NO . COUGH NO . SNORING NO . INTEGUMENTARY: DO YOU HAVE ANY RASHES OR OPEN SORES? YES, RASH TO LEFT FACE . ALLERGIC/IMMUNO: ARE YOU ALLERGIC TO IV DYE? NO . ANY NEW ALLERGIES? NO . PSYCHIATRIC: DO YOU HAVE THOUGHTS OF HURTING YOURSELF OR SOMEONE ELSE? NO . ARE YOU ABUSED, NEGLECTED, OR IN AN UNSAFE ENVIRONMENT? NO . ENDOCRINOLOGY: ARE YOU DIABETIC? NO . THYROID DISORDER NO . OTHER: DO YOU NEED ANY PRESCRIPTIONS? YES, LYRICA . IF YES, PLEASE LIST: ____ . ANY NEW PROBLEMS WITH YOUR MEDICATIONS? NO . WHEN DID YOU LAST EAT? ____ . WHEN DID YOU LAST DRINK? ____ . WHAT DID YOU LAST DRINK? ____ . NAME OF PERSON DRIVING YOU HOME? ____ . DO YOU HAVE ANY OTHER QUESTIONS OR CONCERNS NO . VITAL SIGNS WT 176.2 LBS, HT 62 IN, BMI 32.22 INDEX, BP 179/85 MM HG, HR 89 /MIN, RR 18 /MIN, TEMP 97.0 F, OXYGEN SAT % 97%, NA INITIALS 15:36 SC, REVIEWED BY: EM. EXAMINATION GENERAL EXAMINATION: PATIENT IS ALERT O X 3 AND COOPERATIVE. LUNGS CLEAR, TO AUSCULTATION. HEART: NO MURMURS OR GALLOPS; FACIAL CRANIAL NERVES ARE GROSSLY NORMAL. GOOD SYMMETRY OF FACIAL MUSCLE MOVEMENT. NORMAL VISUAL SALDANA. TENDERNESS IN THE LOW BACK AREA. LEFT LEG IS WEAKER AT EXTENSION AND FLEXION. STRAIGHT LEG RAISE OF THE LEFT LEG IS POSITIVE FOR RADICULOPATHY AT 50 DEGREES. MRI OF THE LUMBAR SPINE DONE ON 07/05/2018 IS SHOWING STENOSIS AND BULGING DISCS AT MULTIPLE LEVELS. ASSESSMENTS INTERVERTEBRAL DISC DISORDER WITH RADICULOPATHY OF LUMBAR REGION - M51.16 (PRIMARY) SPINAL STENOSIS OF LUMBAR REGION, UNSPECIFIED WHETHER NEUROGENIC CLAUDICATION PRESENT - M48.061 TREATMENT INTERVERTEBRAL DISC DISORDER WITH RADICULOPATHY OF LUMBAR REGION CLINICAL NOTES: WE DISCUSSED SEVERAL ISSUES WITH MRS. STONER'S PAIN MANAGEMENT CASE. DUE TO THE LUMBAR RADICULOPATHY, I WOULD LIKE TO MOVE FORWARD WITH A LUMBAR EPIDURAL STEROID INJECTION AT THIS TIME. WE DISCUSSED THE BENEFITS, RISKS, AND ALTERNATIVES OF THE INJECTION AND THE PATIENT WOULD LIKE TO PROCEED. I WILL ALSO REFER THE PATIENT TO PALLIATIVE CARE FOR MEDICATION MANAGEMENT. THE PATIENT WILL FOLLOW UP A FEW WEEKS AFTER THE INJECTION. INSTRUCTIONS WERE GIVEN, QUESTIONS WERE ANSWERED, PATIENT REPORTS UNDERSTANDING AND AGREES WITH THE PLAN. I, JAMES CAT, DOCUMENTED THE ABOVE INFORMATION ACTING A SCRIBE FOR DR. GARCIA. I HAVE REVIEWED THE ABOVE DOCUMENT, WRITTEN BY JAMES LLANES AND I VERIFY THAT IT IS ACCURATE. . PREVENTIVE MEDICINE PAIN CLINIC TEACHING: PROCEDURE TEACHING PRINTED INFORMATION ON LUMBAR EPIDURAL GIVEN TO AND REVIEWED WITH PT. ALONG WITH PRINTED PRE-PROCEDURE INSTRUCTIONS. PT VERBALIZED UNDERSTANDING ON ALL. AD. PROCEDURE CODES FA211 ESTABILISHED PATIENT [facility] FACILITY CHARGE G8427 CURRENT MEDS W/DOSAGES DOCUMENTED G8730 PAIN ASSESS POS TOOL F/U PLAN DOC DISPOSITION & COMMUNICATION FOLLOW UP 3 WEEKS ELECTRONICALLY SIGNED BY CECILIA GARCIA MD, ON 12/07/2018 AT 04:58 PM EDT DISCLAIMER : THIS IS A VISIT SUMMARY EXTRACTED FROM THE [employer] CHART. IT IS NOT A COPY OF THE [employer] PROGRESS NOTE. MTDD
== END ==
LOC: M PAIN 15:00
PROVIDERS: ATTEND Anesthesiology
DX: M51.16 Intervertebral disc disorders with radiculopathy, lumbar region (principal); M48.061 Spinal stenosis, lumbar region without neurogenic claudication; I10 Essential (primary) hypertension; M79.7 Fibromyalgia; F41.9 Anxiety disorder, unspecified; F17.210 Nicotine dependence, cigarettes, uncomplicated; Z79.1 Long term (current) use of non-steroidal anti-inflammatories (NSAID); Z79.899 Other long term (current) drug therapy

== ENCOUNTER 2019-01-03 14:45 | Emergency (ER) | payer MEDICARE, MEDICAID ==
[~2019-01-03] VITALS: Ht 157.5 cm; Wt 77.3 kg
[2019-01-03] MEDS ORDERED: TRAZ-189 PO (15:23)
[2019-01-03] MEDS ORDERED: SERT-138 PO (15:23)
[2019-01-03] MEDS ORDERED: D200CAP2 PO (15:23)
[2019-01-03] MEDS ORDERED: DULO1CAP5 PO (15:23)
[2019-01-03] MEDS ORDERED: PREG300C PO (15:23)
[2019-01-03] MEDS ORDERED: LISI20TA19 PO (15:23)
[2019-01-03 16:03] LABS: HEMATOCRIT 36.3 % (36.0-47.0); HEMOGLOBIN 12.1 g/dl (12.0-15.5); MEAN CORPUSCULAR HEMOGLOBIN 30.7 pg (27.0-33.0); MEAN CORPUSCULAR HGB CONC 33.3 g/dl (32.0-36.5); MEAN CORPUSCULAR VOLUME 92.1 fl (80.0-96.0); PLATELET COUNT, AUTOMATED 312 10^3/uL (150-450); RED BLOOD COUNT 3.94 10^6/uL (4.00-5.40); WHITE BLOOD COUNT 7.6 10^3/uL (4.0-10.0)
[2019-01-03 16:32] LABS: ACETAMINOPHEN LEVEL < 2.0 UG/ML (10.0-30.0); ALBUMIN 3.7 GM/DL (3.2-5.2); ALT/SGPT 13 U/L (12-78); BILIRUBIN,DIRECT 0.1 MG/DL (0.0-0.2); BILIRUBIN,TOTAL 0.3 MG/DL (0.2-1.0); BLOOD UREA NITROGEN 4 MG/DL (7-18); CALCIUM LEVEL 8.6 MG/DL (8.5-10.1); CARBON DIOXIDE LEVEL 34 MEQ/L (21-32); CHLORIDE LEVEL 101 MEQ/L (98-107); CREATININE FOR GFR 0.71 MG/DL (0.55-1.30); ETHYL ALCOHOL (ETHANOL) < 0.003 % (0.000-0.010); GLOMERULAR FILTRATION RATE > 60.0 (>51); GLUCOSE, FASTING 106 MG/DL (70-100); POTASSIUM SERUM 3.3 MEQ/L (3.5-5.1); SALICYLATE LEVEL 4.9 MG/DL (5.0-30.0); SODIUM LEVEL 142 MEQ/L (136-145); TOTAL PROTEIN 6.5 GM/DL (6.4-8.2)
[2019-01-03] MEDS ORDERED: NAPR500T6 PO (16:42)
[2019-01-03] MEDS ORDERED: DULO60CA35 PO (16:42)
[2019-01-03] MEDS ORDERED: HM P99TA PO (16:42)
[2019-01-03] MEDS ORDERED: medical marijuana (16:43)
[2019-01-03 16:55] LABS: AMPHETAMINES LEVEL URINE NEGATIVE (NEGATIVE); BARBITURATES URINE NEGATIVE (NEGATIVE); BENZODIAZEPINES URINE NEGATIVE (NEGATIVE); CANNABINOIDS URINE POSITIVE (NEGATIVE); COCAINE METABOLITE URINE NEGATIVE (NEGATIVE); METHADONE URINE NEGATIVE (NEGATIVE); OPIATES URINE NEGATIVE (NEGATIVE); PHENCYCLIDINE URINE NEGATIVE (NEGATIVE)
[2019-01-03] MEDS ORDERED: POTASSIUM CHLORIDE 10 MEQ SR TABLET PO ONE (17:00)
[2019-01-03 19:49] VITALS: BP 180/92
== END 2019-01-03 20:00 | disposition home or self-care (01) ==
LOC: M ED 14:45
DX: R45.851 Suicidal ideations (principal); F43.24 Adjustment disorder with disturbance of conduct; Z91.5 Personal history of self-harm; M79.7 Fibromyalgia; G89.29 Other chronic pain; M48.00 Spinal stenosis, site unspecified; F17.200 Nicotine dependence, unspecified, uncomplicated; Z79.899 Other long term (current) drug therapy
CPT/HCPCS: 36415; 80048; 80076; 80307; 84443; 85027; 99284; G0480

== ENCOUNTER → 2019-10-02 | Outpatient (CLI) | payer MEDICARE, MEDICAID ==
[~2019-10-02] MED LIST changes: +D200CAP2 PO; +DULO1CAP5 PO; +DULO60CA35 PO; +HM P99TA PO; +LISI20TA19 PO; +NAPR500T6 PO; +PREG300C PO; +SERT-138 PO; +TRAZ-189 PO; +medical marijuana
[2019-10-02 09:17] LABS: HEMATOCRIT 37.9 % (36.0-47.0); HEMOGLOBIN 13.2 g/dl (12.0-15.5); MEAN CORPUSCULAR HEMOGLOBIN 31.6 pg (27.0-33.0); MEAN CORPUSCULAR HGB CONC 34.8 g/dl (32.0-36.5); MEAN CORPUSCULAR VOLUME 90.7 fl (80.0-96.0); PLATELET COUNT, AUTOMATED 313 10^3/uL (150-450); RED BLOOD COUNT 4.18 10^6/uL (4.00-5.40); WHITE BLOOD COUNT 5.9 10^3/uL (4.0-10.0)
[2019-10-02 10:00] LABS: ALBUMIN 3.7 GM/DL (3.2-5.2); ALT/SGPT 15 U/L (12-78); BILIRUBIN,TOTAL 0.5 MG/DL (0.2-1.0); BLOOD UREA NITROGEN 8 MG/DL (7-18); CALCIUM LEVEL 10.1 MG/DL (8.5-10.1); CARBON DIOXIDE LEVEL 33 MEQ/L (21-32); CHLORIDE LEVEL 99 MEQ/L (98-107); CHOLESTEROL LEVEL 205 MG/DL (<200); CHOLESTEROL RISK RATIO 3.306 (<5); CREATININE FOR GFR 0.68 MG/DL (0.55-1.30); GLOMERULAR FILTRATION RATE > 60.0 (>51); GLUCOSE, FASTING 96 MG/DL (70-100); HDL CHOLESTEROL 62 MG/DL (>40); LDL CHOLESTEROL 121 MG/DL (<100); NON-HDL-C 143 MG/DL; POTASSIUM SERUM 3.3 MEQ/L (3.5-5.1); SODIUM LEVEL 138 MEQ/L (136-145); TOTAL PROTEIN 6.8 GM/DL (6.4-8.2); TRIGLYCERIDES LEVEL 108 MG/DL (<150)
--- NOTE | 2019-10-02 19:20 | ECGEPIP ---
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
== END ==
LOC: M LAB 08:49
PROVIDERS: ATTEND Internal Medicine Hematology & Oncology
DX: Z13.220 Encounter for screening for lipoid disorders (principal); R42 Dizziness and giddiness; R94.31 Abnormal electrocardiogram [ECG] [EKG]; Z79.899 Other long term (current) drug therapy

== ENCOUNTER 2019-10-09 22:40 | Emergency (ER) | payer MEDICARE, MEDICAID ==
[~2019-10-09] VITALS: Ht 157.5 cm; Wt 80.9 kg
[2019-10-09] MEDS ORDERED: ASPIRIN 81 MG CHEW TABLET PO ONE (23:00)
[2019-10-09] MEDS ORDERED: NITROGLYCERIN 0.4 MG SUBL TABLET SL PRN (23:00)
[2019-10-09 23:09] LABS: HEMATOCRIT 38.7 % (36.0-47.0); MEAN CORPUSCULAR HEMOGLOBIN 30.7 pg (27.0-33.0); MEAN CORPUSCULAR HGB CONC 33.6 g/dl (32.0-36.5); MEAN CORPUSCULAR VOLUME 91.3 fl (80.0-96.0); PLATELET COUNT, AUTOMATED 310 10^3/uL (150-450); RED BLOOD COUNT 4.24 10^6/uL (4.00-5.40); WHITE BLOOD COUNT 10.5 10^3/uL (4.0-10.0)
[2019-10-09 23:16] VITALS: BP 179/96
[2019-10-09 23:27] LABS: PROTHROMBIN TIME 12.9 SECONDS (11.8-14.0)
[2019-10-09 23:28] LABS: PARTIAL THROMBOPLASTIN TIME 32.6 SECONDS (25.0-38.4)
[2019-10-09 23:33] LABS: ATYPICAL LYMPH 5 % (0-5); BASOPHILS 2 % (0-1); EOSINOPHILS 10 % (0-3); LYMPHOCYTES 31 % (16-44); MONOCYTES 6 % (0-5); NEUTROPHILS 46 % (28-66)
[2019-10-09 23:34] LABS: PLATELET ESTIMATE NORMAL (NORMAL)
[2019-10-09 23:40] LABS: ALBUMIN 4.1 GM/DL (3.2-5.2); ALT/SGPT 19 U/L (12-78); BILIRUBIN,DIRECT < 0.1 MG/DL (0.0-0.2); BILIRUBIN,TOTAL 0.3 MG/DL (0.2-1.0); BLOOD UREA NITROGEN 9 MG/DL (7-18); CALCIUM LEVEL 8.6 MG/DL (8.5-10.1); CARBON DIOXIDE LEVEL 32 MEQ/L (21-32); CHLORIDE LEVEL 102 MEQ/L (98-107); CK-MB VALUE MASS 3.3 NG/ML (<3.6); CPK CREATINE PHOSPHOKINASE 304 U/L (26-192); CREATININE FOR GFR 0.67 MG/DL (0.55-1.30); FREE T4 1.04 NG/DL (0.76-1.46); GLOMERULAR FILTRATION RATE > 60.0 (>51); GLUCOSE, FASTING 104 MG/DL (70-100); LIPASE 54 U/L (73-393); MB/CK RELATIVE INDEX 1.09 (< OR =4); POTASSIUM SERUM 3.3 MEQ/L (3.5-5.1); SODIUM LEVEL 140 MEQ/L (136-145); TOTAL PROTEIN 7.3 GM/DL (6.4-8.2); TROPONIN I < 0.02 NG/ML (< 0.10)
[2019-10-10 00:15] VITALS: BP 141/78
[2019-10-10] MEDS ORDERED: POTASSIUM CHLORIDE 10 MEQ SR TABLET PO ONE (00:15)
--- NOTE | 2019-10-10 00:39 | ECGEPIP ---
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
--- NOTE | 2019-10-10 07:57 | REP ---
Chest x-ray: Two views. History: Chest pain . Comparison study: No comparison study . Findings: The lungs are well inflated and free of infiltrate. The pleural angles are sharp. The heart size is normal. Pulmonary vasculature is not increased. No significant bony abnormality is seen. Impression: Negative chest x-ray. Electronically Signed by Checo Saini MD 10/10/2019 07:49 A
== END 2019-10-10 01:30 | disposition left against medical advice (07) ==
LOC: M ED 22:40
DX: R06.02 Shortness of breath (principal); R11.0 Nausea; I10 Essential (primary) hypertension; E78.5 Hyperlipidemia, unspecified; M79.7 Fibromyalgia; Z79.899 Other long term (current) drug therapy; F17.210 Nicotine dependence, cigarettes, uncomplicated

== ENCOUNTER → 2019-10-16 | Outpatient (CLI) | payer MEDICARE, MEDICAID ==
[2019-10-16 13:30] LABS: BLOOD UREA NITROGEN 8 MG/DL (7-18); CALCIUM LEVEL 9.4 MG/DL (8.5-10.1); CARBON DIOXIDE LEVEL 30 MEQ/L (21-32); CHLORIDE LEVEL 105 MEQ/L (98-107); CREATININE FOR GFR 0.82 MG/DL (0.55-1.30); GLOMERULAR FILTRATION RATE > 60.0 (>51); GLUCOSE, FASTING 89 MG/DL (70-100); POTASSIUM SERUM 3.8 MEQ/L (3.5-5.1); SODIUM LEVEL 141 MEQ/L (136-145)
== END ==
LOC: M LAB 11:19
PROVIDERS: ATTEND Internal Medicine Hematology & Oncology
DX: E87.6 Hypokalemia (principal)

== ENCOUNTER → 2019-11-02 | Outpatient (CLI) | payer MEDICARE, MEDICAID ==
[2019-11-02 10:58] LABS: BLOOD UREA NITROGEN 7 MG/DL (7-18); CARBON DIOXIDE LEVEL 33 MEQ/L (21-32); CHLORIDE LEVEL 106 MEQ/L (98-107); CREATININE FOR GFR 0.73 MG/DL (0.55-1.30); GLOMERULAR FILTRATION RATE > 60.0 (>51); GLUCOSE, FASTING 96 MG/DL (70-100); POTASSIUM SERUM 4.2 MEQ/L (3.5-5.1); SODIUM LEVEL 143 MEQ/L (136-145)
== END ==
LOC: M LAB 09:42
PROVIDERS: ATTEND Internal Medicine Hematology & Oncology
DX: E87.6 Hypokalemia (principal)

== ENCOUNTER → 2019-11-13 | Outpatient (CLI) | payer MEDICARE, MEDICAID ==
[2019-11-13 17:18] LABS: HEMATOCRIT 37.6 % (36.0-47.0); HEMOGLOBIN 12.7 g/dl (12.0-15.5); MEAN CORPUSCULAR HEMOGLOBIN 31.2 pg (27.0-33.0); MEAN CORPUSCULAR HGB CONC 33.8 g/dl (32.0-36.5); MEAN CORPUSCULAR VOLUME 92.4 fl (80.0-96.0); PLATELET COUNT, AUTOMATED 324 10^3/uL (150-450); RED BLOOD COUNT 4.07 10^6/uL (4.00-5.40); WHITE BLOOD COUNT 7.5 10^3/uL (4.0-10.0)
[2019-11-13 17:46] LABS: ALBUMIN 4.1 GM/DL (3.2-5.2); ALT/SGPT 19 U/L (12-78); BILIRUBIN,TOTAL 0.4 MG/DL (0.2-1.0); BLOOD UREA NITROGEN 8 MG/DL (7-18); CALCIUM LEVEL 9.5 MG/DL (8.5-10.1); CARBON DIOXIDE LEVEL 32 MEQ/L (21-32); CHLORIDE LEVEL 105 MEQ/L (98-107); CREATININE FOR GFR 0.72 MG/DL (0.55-1.30); GLOMERULAR FILTRATION RATE > 60.0 (>51); GLUCOSE, FASTING 88 MG/DL (70-100); POTASSIUM SERUM 3.9 MEQ/L (3.5-5.1); SODIUM LEVEL 139 MEQ/L (136-145); TOTAL PROTEIN 7.1 GM/DL (6.4-8.2)
== END ==
LOC: M LAB 15:39
PROVIDERS: ATTEND Internal Medicine Hematology & Oncology
DX: I25.9 Chronic ischemic heart disease, unspecified (principal)

== ENCOUNTER → 2020-09-11 | Outpatient (CLI) | payer MEDICARE ==
[~2020-09-11] MED LIST changes: -LISI20TA19 PO; +LISI20TA35 PO
--- NOTE | 2020-09-11 16:13 | REPMRS ---
Patient History The patient states she has not had a clinical breast exam in over a year. No known family history of cancer. Patient states no breast complaints today. Patient has signed MRS History Sheet. Digital Woman Screen Mammo: September 11, 2020 - Exam #: [id number] Bilateral CC and MLO view(s) were taken. Technologist: Tanesha Bashir, Publications Distribution Clerk Prior study comparison: December 21, 2016, bilateral digital mammo screening bilat, performed at [facility]. 2014, digital bilateral screening mammo, performed at [facility]. FINDINGS: There are scattered fibroglandular densities. Screening. Digital screening (2D) mammography was performed bilaterally in the CC and MLO projections. Additionally, breast tomosynthesis (3D mammography) was performed bilaterally in the CC and MLO projections. Todays exam was compared to the prior exams(s). By history, the patient has no complaints of a palpable breast abnormality or other significant breast complaints. The breasts are unchanged in size and shape. There are no johnna-soft tissue densities or spiculated masses. There is no internal architectural distortion. There are no suspicious johnna-calcific clusters. Skin thickening or nipple retraction is not present. IMPRESSION: BI-RADS Category 2- Benign Findings(s). There is no evidence of malignant alteration of the breasts. Followup examination recommended in one year. The Volpara volumetric breast density category is B, there are scattered areas of fibroglandular density. This mammogram was read with the assistance of [employer]an FDA approved computer aided detection system for mammography. The lifetime Tyrer-Cuzick score is 8.6 % Negative x-ray reports should not delay surgical consultation if a dominant or clinically suspicious mass is present. Not all breast cancers can be identified by mammography. Therefore, we recommend that you continue to perform regular breast self-examination and physical examination and then promptly contact your physician of any concerns or changes. Adenosis and dense breasts may obscure an underlying neoplasm. Assessment: BI-RADS/ACR category 2 mammogram. Benign Findings. Recommendation Routine screening mammogram of both breasts in 1 year. Electronically Signed By: Umberto Moeller DO 09/11/20 2094
== END ==
LOC: M WHC 09:55
PROVIDERS: ATTEND Physician Assistant
DX: Z12.31 Encounter for screening mammogram for malignant neoplasm of breast (principal)

== ENCOUNTER → 2021-07-02 | Outpatient (CLI) | payer MEDICARE ==
[~2021-07-02] MED LIST changes: -HM P99TA PO; +POTA99TA14 PO
== END ==
LOC: M RAD 10:00
PROVIDERS: ATTEND Nurse Practitioner Family
DX: M54.2 Cervicalgia (principal); M54.6 Pain in thoracic spine

== ENCOUNTER 2021-09-02 14:34 | Emergency (ER) | payer MEDICARE ==
[~2021-09-02] VITALS: Ht 157.5 cm; Wt 90.9 kg
[2021-09-02 14:34] VITALS: BP 142/64
[2021-09-02] MEDS ORDERED: METO1TAB7 (14:54)
[2021-09-02] MEDS ORDERED: TIZA10TA (14:54)
[2021-09-02] MEDS ORDERED: FISH1000 PO (14:54)
== END 2021-09-02 17:01 | disposition left against medical advice (07) ==
LOC: M ED 14:34
DX: Z53.21 Procedure and treatment not carried out due to patient leaving prior to being seen by health care provider (principal)

== ENCOUNTER → 2022-03-31 | Outpatient (REF) | payer MEDICARE ==
[~2022-03-31] MED LIST changes: +FISH1000 PO; +METO1TAB7; +TIZA10TA
== END ==
LOC: M LAB REF 15:57
PROVIDERS: ATTEND Ophthalmology
DX: C44.1192 Basal cell carcinoma of skin of left lower eyelid, including canthus (principal)

== ENCOUNTER → 2022-09-02 | Outpatient (CLI) | payer MEDICARE, MEDICAID | LOC: M RAD 15:06 | PROVIDERS: ATTEND Nurse Practitioner Family | DX: L72.9 Follicular cyst of the skin and subcutaneous tissue, unspecified (principal) ==

== ENCOUNTER → 2022-10-11 | Outpatient (CLI) | payer MEDICARE, MEDICAID | LOC: M LAB 13:16 | PROVIDERS: ATTEND Physician Assistant | DX: M79.7 Fibromyalgia (principal) | CPT/HCPCS: 36415; 80171; G0480 ==

== ENCOUNTER → 2022-10-11 | Outpatient (CLI) | payer MEDICARE, MEDICAID ==
[2022-10-11 14:46] LABS: BASO # 0.1 10^3/uL (0.0-0.2); BASO % 1.4 % (0.0-1.0); EOS # 0.2 10^3/uL (0.0-0.5); EOS % 2.6 % (0.0-3.0); HEMATOCRIT 41.3 % (36.0-47.0); HEMOGLOBIN 14.2 g/dl (12.0-15.5); LYMPH # 3.2 10^3/uL (1.5-5.0); LYMPH % 44.8 % (24.0-44.0); MEAN CORPUSCULAR HEMOGLOBIN 31.7 pg (27.0-33.0); MEAN CORPUSCULAR HGB CONC 34.4 g/dl (32.0-36.5); MEAN CORPUSCULAR VOLUME 92.2 fl (80.0-96.0); MONO # 0.4 10^3/uL (0.0-0.8); MONO % 5.8 % (2.0-8.0); NEUTROPHILS # 3.2 10^3/uL (1.5-8.5); NEUTROPHILS % 45.1 % (36.0-66.0); PLATELET COUNT, AUTOMATED 306 10^3/uL (150-450); RED BLOOD COUNT 4.48 10^6/uL (4.00-5.40); WHITE BLOOD COUNT 7.2 10^3/uL (4.0-10.0)
[2022-10-11 15:22] LABS: ALBUMIN 4.1 G/DL (3.2-5.2); ALKALINE PHOSPHATASE 78 U/L (46-116); ALT/SGPT 24 U/L (7.0-40); AST/SGOT 18 U/L (<34); BILIRUBIN,TOTAL 0.4 MG/DL (0.3-1.2); BLOOD UREA NITROGEN 8 MG/DL (9-23); CALCIUM LEVEL 9.6 MG/DL (8.5-10.1); CARBON DIOXIDE LEVEL 31 MMOL/L (20-31); CHLORIDE LEVEL 104 MMOL/L (98-107); CREATININE FOR GFR 0.68 MG/DL (0.55-1.30); GLOMERULAR FILTRATION RATE > 60.0 (>51); GLUCOSE, FASTING 88 MG/DL (60-100); POTASSIUM SERUM 3.2 MMOL/L (3.5-5.1); RHEUMATOID FACTOR QUANT 6.5 IU/ML (<14); SODIUM LEVEL 140 MMOL/L (136-145)
[2022-10-11 15:24] LABS: ERYTHROCYTE SEDIMENTATION RATE 10 mm/hr (0-30); THYROID STIMULATING HORMONE 1.118 uIU/ML (0.55-4.78); TOTAL 25(OH) VITAMIN D 37.2 NG/ML (20.0-100.0)
== END ==
LOC: M LAB 13:14
PROVIDERS: ATTEND Psychiatry & Neurology Neurology
DX: R51.9 Headache, unspecified (principal); M79.7 Fibromyalgia; Z79.899 Other long term (current) drug therapy
CPT/HCPCS: 36415; 80053; 80171; 82306; 83516; 83519; 84443; 85025; 85652; 86038; 86255; 86431; G0480

== ENCOUNTER → 2023-08-25 | Outpatient (CLI) | payer MEDICARE, MEDICAID ==
[~2023-08-25] MED LIST changes: +AMLO1TAB24; -PREG300C PO; +PREG300C2 PO; +SPIR-10
[2023-08-25 12:27] LABS: HEMATOCRIT 43.3 % (36.0-47.0); HEMOGLOBIN 14.6 g/dl (12.0-15.5); MEAN CORPUSCULAR HEMOGLOBIN 31.4 pg (27.0-33.0); MEAN CORPUSCULAR HGB CONC 33.7 g/dl (32.0-36.5); MEAN CORPUSCULAR VOLUME 93.1 fl (80.0-96.0); PLATELET COUNT, AUTOMATED 295 10^3/uL (150-450); RED BLOOD COUNT 4.65 10^6/uL (4.00-5.40); WHITE BLOOD COUNT 6.1 10^3/uL (4.0-10.0)
[2023-08-25 12:37] LABS: INR 0.93; PROTHROMBIN TIME 12.2 SECONDS (12.5-14.5)
[2023-08-25 13:40] VITALS: TEMP 98.3
[2023-08-25 16:00] VITALS: BP 154/81; O2SAT 96
[2023-08-25 16:02] LABS: CSF TUBE# TP TUBE 3; TOTAL PROTEIN,CSF 48.7 MG/DL (15-45)
[2023-08-25 16:05] LABS: CSF TUBE# GLU TUBE 1
[2023-08-25 16:08] LABS: APPEARANCE, CSF CLEAR (CLEAR); COLOR, CSF COLORLESS (COLORLESS); CSF TUBE# CELL CNT TUBE 4
== END ==
LOC: M IRPRO 12:02
PROVIDERS: ATTEND Psychiatry & Neurology Neurology
DX: G93.2 Benign intracranial hypertension (principal)

== ENCOUNTER → 2024-05-07 | Outpatient (CLI) | payer MEDICARE, MEDICAID ==
[~2024-05-07] MED LIST changes: +NAPR-1405 PO; -NAPR500T6 PO
== END ==
LOC: M WHC 07:30
PROVIDERS: ATTEND Physician Assistant
DX: Z12.31 Encounter for screening mammogram for malignant neoplasm of breast (principal)

== ENCOUNTER → 2024-08-29 | Outpatient (CLI) | payer MEDICARE, MEDICAID | LOC: M RAD 11:47 | PROVIDERS: ATTEND Physician Assistant | DX: M25.551 Pain in right hip (principal); M54.50 Low back pain, unspecified ==

== ENCOUNTER → 2024-10-11 | Outpatient (CLI) | payer MEDICAID, MEDICARE | LOC: M RAD 09:56 | PROVIDERS: ATTEND Physician Assistant | DX: R10.13 Epigastric pain (principal) ==